=== PATIENT | female | born 1955 | race Caucasian/White ===

== ENCOUNTER 2018-05-04 15:44 | Emergency (ER) | payer OTHER ==
[~2018-05-04] VITALS: Ht 154.9 cm; Wt 48.5 kg
[2018-05-04 15:44] VITALS: BP 115/69
[2018-05-04] MEDS ORDERED: IOHEXOL 300 MG/ML 75 ML VIAL. IV ONE (16:45)
--- NOTE | 2018-05-04 16:54 | PHYS DOC ---
Past History Past Medical History: Anxiety, Cancer, COPD, GERD Past Surgical History: Cancer Surgery, Hysterectomy Alcohol Use: None Drug Use: None Adult General Chief Complaint Chief Complaint: ABDOMINAL PAIN HPI HPI 62-year-old female presents with diffuse abdominal pain. The patient has a long history of abdominal pain and congestive difficulties. She [facility] She is currently on ranitidine twice a day. The patient comes in today because [facility] not been able to [facility] her issue and she has had persistent nausea despite 8 mg Zofran tabs for the last couple of days without vomiting. She has not had any increase in her abdominal pain necessarily, but she does have some epigastric abdominal pain. She has had a total hysterectomy in the past but still has her gallbladder and appendix. She denies fever or chills. The nausea has caused her to have significantly decreased appetite. She is able to drink fluids. Review of Systems Review of Systems Constitutional: Denies fever or chills [] Eyes: Denies change in visual acuity, redness, or eye pain [] HENT: Denies nasal congestion or sore throat [] Respiratory: Denies cough or shortness of breath [] Cardiovascular: No additional information not addressed in HPI [] GI: Epigastric abdominal pain, nausea, flank pain[] : Denies dysuria or hematuria [] Musculoskeletal: Denies back pain or joint pain [] Integument: Denies rash or skin lesions [] Neurologic: Denies headache, focal weakness or sensory changes [] Endocrine: Denies polyuria or polydipsia [] All other systems were reviewed and found to be within normal limits, except as documented in this note. Current Medications Current Medications Current Medications Medications (Trade) Dose Ordered Sig/Nba Start Time Stop Time Status Last Admin Dose Admin Iohexol (Omnipaque 300 Mg/ml) 75 ml 1X ONCE 05/04/18 16:45 05/04/18 16:46 DC Prochlorperazine Edisylate (Compazine) 10 mg 1X ONCE 05/04/18 17:00 05/04/18 17:01 Allergies Allergies Allergies Coded Allergies Type Severity Reaction Last Updated Verified Estrogens Allergy Unknown 05/04/18 Yes acetaminophen Allergy Unknown 05/04/18 Yes aspirin Allergy Unknown 05/04/18 Yes atorvastatin Allergy Unknown 05/04/18 Yes cetirizine Allergy Unknown 05/04/18 Yes estrogens, conjugated Allergy Unknown 05/04/18 Yes naproxen Allergy Unknown 05/04/18 Yes oxycodone Allergy Unknown 05/04/18 Yes simvastatin Allergy Unknown 05/04/18 Yes varenicline Allergy Unknown 05/04/18 Yes Physical Exam Physical Exam Constitutional: Well developed, well nourished, no acute distress, non-toxic appearance. [] HENT: Normocephalic, atraumatic, bilateral external ears normal, oropharynx moist, no oral exudates, nose normal. [] Eyes: PERRLA, EOMI, conjunctiva normal, no discharge. [] Neck: Normal range of motion, no tenderness, supple, no stridor. [] Cardiovascular:Heart rate regular rhythm, no murmur [] Lungs & Thorax: Bilateral breath sounds clear to auscultation [] Abdomen: Epigastric abdominal pain.[] Skin: Warm, dry, no erythema, no rash. [] Back: No tenderness. Bilateral CVA tenderness[] Extremities: No tenderness, no cyanosis, no clubbing, ROM intact, no edema. [] Neurologic: Alert and oriented X 3, normal motor function, normal sensory function, no focal deficits noted. [] Psychologic: Affect normal, judgement normal, mood normal. [] Current Patient Data Vital Signs Vital Signs Date Time Temp Pulse Resp B/P (MAP) Pulse Ox O2 Delivery O2 Flow Rate FiO2 05/04/18 15:44 97.7 87 22 99 Room Air EKG EKG [] Radiology/Procedures Radiology/Procedures [] Course & Med Decision Making Course & Med Decision Making Pertinent Labs and Imaging studies reviewed. (See chart for details) The patient's labs and CT scan are pending. I have given her 10 mg of Compazine and 1 L saline. I am signing out the patient to Dr. Eng at 1800. He will determine her final disposition. [] Dragon Disclaimer Dragon Disclaimer This electronic medical record was generated, in whole or in part, using a voice recognition dictation system. Departure Departure: Referrals: [facility]UI (PCP) Scripts Promethazine HCl (Phenergan) 25 Mg Supp.rect 25 MG RC qid prn PRN for severe nausea, #30 SUPP.RECT Prov: NAVEED ENG MD 05/04/18 MARY GRACE EARL DO May 04, 2018 16:54
[2018-05-04] MEDS ORDERED: PROCHLORPERAZINE 10 MG/2 ML VIAL. IV ONE (17:00)
[2018-05-04 17:28] LABS: BASO # 0.1 x10^3/uL (0.0-0.2); BASO % 2 % (0-3); EOS # 0.1 x10^3/uL (0.0-0.7); EOS % 1 % (0-3); HEMATOCRIT 41.4 % (36.0-47.0); HEMOGLOBIN 14.2 g/dL (12.0-15.5); LYMPH # 1.6 x10^3/uL (1.0-4.8); LYMPH % 27 % (24-48); MEAN CORPUSCULAR HEMOGLOBIN 32 pg (25-35); MEAN CORPUSCULAR HGB CONC 34 g/dL (31-37); MEAN CORPUSCULAR VOLUME 94 fL (79-100); MONO # 0.7 x10^3/uL (0.0-1.1); MONO % 11 % (0-9); NEUT # 3.5 x10^3uL (1.8-7.7); NEUT % 58 % (31-73); PLATELET COUNT 347 x10^3/uL (140-400); RED BLOOD COUNT 4.42 x10^6/uL (3.50-5.40); RED CELL DISTRIBUTION WIDTH 12.6 % (11.5-14.5); WHITE BLOOD COUNT 6.1 x10^3/uL (4.0-11.0)
[2018-05-04 19:08] LABS: ALBUMIN 4.7 g/dL (3.4-5.0); ALBUMIN/GLOBULIN RATIO 1.5 (1.0-1.7); CALCIUM 9.8 mg/dL (8.5-10.1); TOTAL PROTEIN 7.9 g/dL (6.4-8.2)
[2018-05-04 19:10] LABS: CREATININE 0.7 mg/dL (0.6-1.0); GFR 84.2; TOTAL BILIRUBIN 0.5 mg/dL (0.2-1.0)
[2018-05-04 19:12] LABS: POTASSIUM 4.5 mmol/L (3.5-5.1)
--- NOTE | 2018-05-04 20:40 | RAD ---
PQ[employer] Compliance statement: One or more of the following individualized dose reduction techniques were utilized for this examination: 1. Automated exposure control. 2. Adjustment of the mA and/or kV according to patient size. 3. Use of iterative reconstruction technique. Indication:Omni 300, 73ml IV. Abdominal pain, intractable nausea. Hx mastectomy, breast cancer, COPD TECHNIQUE: CT abdomen and pelvis with IV contrast with multiplanar reformats. COMPARISON: None FINDINGS: Heart is normal in size. No pericardial or pleural effusion. Mild subsegmental atelectasis in the right lung base. Otherwise, visualized lung bases are clear. Liver, spleen, gallbladder, pancreas, adrenals and kidneys are within normal limits. No enlarged retroperitoneal or pelvic adenopathy. No free pelvic fluid or ascites. No bowel obstruction. Urinary bladder within normal limits. Status post hysterectomy. Tortuous abdominal aorta with diffuse atherosclerotic calcifications. No pneumoperitoneum. Moderate dextroscoliosis of the thoracolumbar junction. No suspicious bony lesion. IMPRESSION: 1. No bowel obstruction. 2. No nephrolithiasis or hydronephrosis. Electronically signed by: Aly Malik DO (05/04/2018 8:36 PM) [facility]
[2018-05-04] MEDS ORDERED: MAGNESIUM HYDROXIDE 2,400 MG/30 ML ORAL.SUSP. PO ONE (20:45)
[2018-05-04 21:00] LABS: BILIRUBIN,URINE NEG (NEG); CLARITY,URINE CLEAR; COLOR,URINE STRAW; GLUCOSE,URINE NEG (NEG)
[2018-05-04 21:01] LABS: BACTERIA,URINE 0 /HPF (0-FEW); NITRITE,URINE NEG (NEG); RBC,URINE OCC /HPF (0-2); SQUAMOUS EPITHELIAL CELL,UR FEW /LPF; UROBILINOGEN,URINE 0.2 mg/dL (0.2 mg/dL); WBC,URINE OCC /HPF (0-4)
[2018-05-04] MEDS ORDERED: PROM25SU32 RC (21:01)
== END 2018-05-04 21:25 | disposition home or self-care (01) ==
LOC: ER 15:44
DX: K59.00 Constipation, unspecified (principal); D72.821 Monocytosis (symptomatic); G89.29 Other chronic pain; R10.13 Epigastric pain; J44.9 Chronic obstructive pulmonary disease, unspecified; K21.9 Gastro-esophageal reflux disease without esophagitis; Z90.12 Acquired absence of left breast and nipple; Z90.710 Acquired absence of both cervix and uterus; Z88.6 Allergy status to analgesic agent; Z88.5 Allergy status to narcotic agent; Z88.8 Allergy status to other drugs, medicaments and biological substances
CPT/HCPCS: 36415; 74177; 80053; 81001; 83690; 85025; 96374; 99285; J0780; Q9967